=== PATIENT | female | born 1940 | race Caucasian/White ===

== ENCOUNTER 2020-12-15 15:51 | Emergency (ER) | payer MEDICARE, OTHER ==
[2020-12-15 16:03] VITALS: RESP 18; TEMP 98.4
[2020-12-15 16:04] LABS: Glucose,Whole Blood 121 mg/dL (75-99)
[2020-12-15] MEDS ORDERED: ACETAMINOPHEN TAB 500 MG TAB PO STA (16:29)
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
[2020-12-15] MEDS ORDERED: CYCLOBENZAPRINE 10MG STARTER 3 TAB BTL PO STA (18:20)
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
[2020-12-15 19:06] VITALS: BP 126/72; PULSE 71
== END 2020-12-15 18:40 | disposition home or self-care (01) ==
LOC: EC 15:51
DX: S01.01XA Laceration without foreign body of scalp, initial encounter (principal); S63.502A Unspecified sprain of left wrist, initial encounter; M79.645 Pain in left finger(s); I10 Essential (primary) hypertension; Z87.891 Personal history of nicotine dependence; Y92.410 Unspecified street and highway as the place of occurrence of the external cause; V89.2XXA Person injured in unspecified motor-vehicle accident, traffic, initial encounter
CPT/HCPCS: 12002; 36415; 70450; 72125; 99284